=== PATIENT | male | born 1965 | race Caucasian/White ===

== ENCOUNTER 2024-10-31 09:26 | Outpatient (AMB) | payer OTHER, SELFPAY ==
--- NOTE | 2024-10-31 09:34 | A.OFFVIS_ITS ---
Vital Signs 10/31/24 09:37 Height 5 ft 10 in Weight 206 lb BMI 29.6 BP 142/84 H Blood Pressure Location Rt brachial Position Sitting Intake Visit Reasons: ENP-Bilateral hand tremors Intake Note: Patient presents for hand tremors Allergies No Known Allergies Allergy (Verified 10/31/24 09:37) Medication List - Last Reconciled 10/31/24 by Pau Mobley MD atorvastatin 20 mg PO DAILY levothyroxine (Synthroid) mcg PO HPI Comments Details: 59y/o Right handed male comes for evaluation of bilateral hand tremors. It started over 30 years ago but has been mild - usually noticed by his family and friend but for past 2-3 years he feels his tremors have increased and affecting some activities.No known family h/o tremors No depression or anxiety denies head injuries. The tremors are noticeable with action and posture. No voice head or lower extremity tremors His left hand tremors are worse than right. Cutting food - 1 Drink soup-2 Hold cup of tea-2 Pouring milk-1 wash and dry dishes- 1 Using a kleenex to blow nose- 1 Using shower- 1 Using toilet 1 washing face 1 SHoelaces - 1 Buttons-1 ZIp- 1 writing- 2 Putting letter in an envelope- 1 Holding newspaper- 2 dialing phone 1 talking on phone 1 Watch TV 2 Picking change - 2 Electric plug in socket 2 Unlocking door 2 walk up and down stairs 1 Get up for chair 1 carrying a shopping bag ANy activity that needs fine motor coordination is affected He also has trouble with sleep, has loud snoring, witnessed apneas, hypersomnia. [facility] Medical History Hypersomnia Snoring Essential and other specified forms of tremor Cervical radiculopathy Hypercholesteremia Hypothyroidism Graves disease Surgical History Hx of colonoscopy [place] teeth removed H/O vasectomy Family History Mother Hx of cancer of lung Father Hyperlipidemia Social History Alcohol intake: current Patient Tobacco Use Status: Never used Tobacco Physical Exam Vital Signs: Last Vital Signs BP 142/84 H 10/31/24 09:37 BMI result Body Mass Index 29.6 Const General: cooperative, healthy appearing, comfortable and no acute distress Nutritional Appearance: average body habitus Orientation/consciousness: patient oriented x3 Eyes Pupils: Equal, round and reactive pupils present Neuro Other: Left more than right postural and action tremors - mild Tremors drawing archimedes spiral on left Mild no no head tremors General: patient oriented x3, gait normal, tone normal, moves all extremities and no focal motor deficits Cranial nerves: Yes CN's II-XII intact bilaterally, Yes Facial sensation intact/muscles of mastication intact, Yes Equal, round and reactive pupils present, Yes Bilaterally intact EOM present, Yes Nystagmus not present, Yes Normal facial strength present, Yes Midline tongue present, Yes Symmetric palate elevation present and Yes Ability to bilaterally elevate shoulders present Cognition (Neuro): normal cognition Gait exam (Neuro): Normal gait present Motor exam (neuro): 5/5 motor strength present throughout and Normal motor muscle tone present throughout Deep tendon reflexes (DTR's): Right triceps reflex intensity grade: 2+, Left triceps reflex intensity grade: 2+, Rt Biceps (C5, C6): 2+, Left biceps reflex i ntensity grade: 2+, Right brachioradialis reflex intensity grade: 2+, Left brachioradialis reflex intensity grade: 2+, Right patellar reflex intensity grade: 2+ and Left patellar reflex intensity grade: 2+ Coordination: [id number] test normal, [id number] test normal and rapid alternating movements of the distal lower extremity normal Assessment & Plan Assessment & Plan (1) Essential and other specified forms of tremor: Code(s): G25.0 - Essential tremor; G25.2 - Other specified forms of tremor Category: Medical (2) Snoring: Code(s): R06.83 - Snoring Category: Medical (3) Hypersomnia: Code(s): G47.10 - Hypersomnia, unspecified Category: Medical Plan Discussed various management options including medications and CALATAPS Patient does not want to start on nay med snow. I will refer him for OT Home sleep test to r/o sleep apnea. Orders: Orders OT Evaluation and Treatment Today G25.0 - Essential tremor, G25.2 - Other specified forms of tremor RT home sleep study Today G47.10 - Hypersomnia, unspecified, R06.83 - Snoring Coding Level of Care Code New Pt Level 4 (88002) Complex EM visit Add On G2211 Diagnoses Essential and other specified forms of tremor G25.0; G25.2 Snoring R06.83 Hypersomnia G47.10
[2024-10-31 09:37] VITALS: BP 142/84; BMI 29.6
== END 2024-10-31 10:07 | disposition home or self-care (01) ==
PROVIDERS: PCP Internal Medicine; Visit Provider Psychiatry & Neurology Neurology
DX: G25.0 Essential tremor (principal); G25.2 Other specified forms of tremor; R06.83 Snoring; G47.10 Hypersomnia, unspecified
CPT/HCPCS: 99204

== ENCOUNTER → 2024-12-26 14:41 | Outpatient (REF) | payer OTHER, SELFPAY | LOC: HO.SL 14:41 | PROVIDERS: PCP Internal Medicine; Visit Provider Psychiatry & Neurology Neurology | DX: G47.10 Hypersomnia, unspecified (principal); R06.83 Snoring | CPT/HCPCS: 95806 ==

== ENCOUNTER → 2024-12-27 14:50 | Outpatient (BNV) | payer OTHER, SELFPAY | PROVIDERS: PCP Internal Medicine; Visit Provider Psychiatry & Neurology Neurology | DX: R06.83 Snoring (principal); G47.10 Hypersomnia, unspecified | CPT/HCPCS: 95806 ==